=== PATIENT | female | born 1955 | race Caucasian/White ===

== ENCOUNTER 2018-02-10 18:53 | Inpatient (IN) | payer MEDICAID ==
[~2018-02-10] VITALS: Ht 172.7 cm; Wt 135.4 kg
[2018-02-10 20:03] LABS: BASOPHILS % (AUTO) 0.1 % (0-1); EOSINOPHILS % (AUTO) 0.2 % (0-6); HEMATOCRIT 29.3 % (35.0-45.0); HEMOGLOBIN 9.9 g/dl (12.0-16.0); LYMPHOCYTES # (AUTO) 1.6 X10'3 (1.1-4.8); LYMPHOCYTES % (AUTO) 8.7 % (21-51); MEAN CORPUSCULAR HEMOGLOBIN 26.9 PG (27.0-31.0); MEAN CORPUSCULAR HGB CONC 33.7 % (33.0-36.5); MEAN CORPUSCULAR VOLUME 79.8 FL (78-98); MEAN PLATELET VOLUME 7.6 FL (7.4-10.4); MONOCYTES # (AUTO) 0.7 X10'3 (0-0.9); MONOCYTES % (AUTO) 3.7 % (2-12); NEUTROPHILS # (AUTO) 15.8 X10'3 (1.8-7.7); NEUTROPHILS % (AUTO) 87.3 % (42-75); PLATELET COUNT 484 X10'3 (140-440); RED BLOOD COUNT 3.67 X10'6 (4.20-5.60); RED CELL DISTRIBUTION WIDTH 15.9 % (11.5-14.5); WHITE BLOOD COUNT 18.1 X10'3 (4.5-11.0)
[2018-02-10 20:11] LABS: PARTIAL THROMBOPLASTIN TIME 35 SECONDS (22-32); PROTHROMBIN TIME 10.7 SECONDS (9.0-12.0)
[2018-02-10 20:12] LABS: CLARITY,URINE TURBID (Clear); COLOR,URINE YELLOW (Yellow); GLUCOSE, URINE >=1000 mg/dl (Neg); KETONES,URINE 15 mg/dl (Neg); LEUKOCYTE ESTERASE ,URINE MODERATE (Neg); NITRITES, URINE NEGATIVE (Neg); OCCULT BLOOD,URINE LARGE (Neg); PH,URINE 5.5 (4.8-8.0); PROTEIN,URINE 100 mg/dl (Neg); UROBILINOGEN,URINE 0.2 E.U/dL (0.2-1.0)
[2018-02-10 20:17] LABS: ALANINE AMINOTRANSFERASE 16 U/L (12-78); ALBUMIN 2.1 G/DL (3.4-5.0); ALBUMIN/GLOBULIN RATIO 0.4 (1.1-1.5); ALKALINE PHOSPHATASE 99 IU/L (46-116); ASPARTATE AMINO TRANSFERASE 23 U/L (10-37); BILIRUBIN,TOTAL 0.3 MG/DL (0.1-1.0); BLOOD UREA NITROGEN 44 MG/DL (7-18); BUN/CREATININE RATIO 17.1 (6.6-38.0); CALCIUM 9.4 MG/DL (8.5-10.1); CHLORIDE 86 MMOL/L (99-107); CREATININE 2.58 MG/DL (0.40-0.90); TOTAL CARBON DIOXIDE 18.8 MMOL/L (24-32); TOTAL PROTEIN 7.9 G/DL (6.4-8.2); eGFR 19 ML/MIN
[2018-02-10] MEDS ORDERED: vancomycin/NS 1 GM ADD-VANTAGE 250 ML IV ONE (20:20)
[2018-02-10] MEDS ORDERED: normal saline 1000ML IV soln IV ONE (20:20)
[2018-02-10] MEDS ORDERED: piperacillin/tazo 3.375gm/50ml 50 ML IV ONE (20:20)
[2018-02-10 20:21] LABS: UA COLLECTION TYPE VOIDED
[2018-02-10] MEDS ORDERED: clindamycin-Cleocin 900mg/D5W 50 ML IV ONE (20:25)
[2018-02-10 20:31] LABS: BACTERIA,URINE 2+ /HPF (Neg); MUCUS STRANDS NONE SEEN /LPF (Neg); RBC,URINE NONE SEEN /HPF (0-2); SQUAMOUS EPITHELIAL CELL,UR NONE SEEN /LPF (FEW); WBC,URINE TNTC /HPF (0-4)
[2018-02-10 20:32] LABS: YEAST MANY /HPF (NEGATIVE)
[2018-02-10 20:33] LABS: ANION GAP 14 (8-16); POTASSIUM 4.4 MMOL/L (3.5-5.1)
[2018-02-10 20:38] LABS: GLUCOSE 527 MG/DL (70-104); SODIUM 119 MMOL/L (135-145)
[2018-02-10] MEDS ORDERED: insulin regular, human 10 units/0.1 ml syringe SQ ONE (21:15)
[2018-02-10] MEDS ORDERED: normal saline 1000ML IV soln IVB ONE (22:05)
[2018-02-10 22:26] LABS: LARGE PLATELETS FEW; TOTAL CELLS COUNTED 100
[2018-02-10 22:27] LABS: ANISOCYTOSIS 1+; PLATELET ESTIMATE INCREASED
[2018-02-10 22:29] LABS: MICROCYTOSIS 1+; ROULEAUX 1+
[2018-02-11] VITALS (7 sets, daily range): BP systolic 114–151; BP diastolic 52–72
[2018-02-11] MEDS ORDERED: magnesium 4gm in 100ml NS 100 ML IV PRN (00:20)
[2018-02-11] MEDS ORDERED: dextrose 50%-water 50ml dispensing syringe IV PRN ×2 (00:20)
[2018-02-11] MEDS ORDERED: potassium Cl 20 mEq SR tablet PO PRN ×2 (00:20)
[2018-02-11] MEDS ORDERED: potassium Cl 40MEQ/NS 500ml 500 ML IV PRN ×2 (00:20)
[2018-02-11] MEDS: enoxaparin 30mg/0.3ml syringe SUBCUT SCH (00:20)
[2018-02-11] MEDS ORDERED: morphine 4 MG/ML inj SYRINge IV PRN ×2 (00:20)
[2018-02-11] MEDS ORDERED: ondansetron/PF 4mg/2ml inj IV PRN (00:20)
[2018-02-11] MEDS ORDERED: HYDROcodone/acetaminophen 5mg/325mg tablet PO PRN (00:20)
[2018-02-11] MEDS ORDERED: magnesium Cl slow-release 64mg tablet PO PRN (00:20)
[2018-02-11] MEDS ORDERED: magnesium hydroxide 30ml (MOM) UD suspension PO PRN (00:20)
[2018-02-11] MEDS ORDERED: mag hydrox/Alum hydrox/simeth 30ml oral suspension PO PRN (00:20)
[2018-02-11] MEDS ORDERED: acetaminophen 325mg tablet PO PRN ×2 (00:20)
[2018-02-11] MEDS ORDERED: dextrose ORAL solution 15 GM/59 ML bottle PO PRN ×2 (00:20)
[2018-02-11] MEDS ORDERED: magnesium 1gm/100ml D5W IVPB 100 ML IV PRN (00:20)
[2018-02-11] MEDS ORDERED: MESSAGE TO PHARMACY PO ONE (00:20)
[2018-02-11] MEDS ORDERED: glucagon, human recombinant 1mg kit SUBCUT PRN (00:20)
[2018-02-11] MEDS ORDERED: HYDR-3973 PO (00:54)
[2018-02-11] MEDS ORDERED: INSU100V9 SUBCUT (00:54)
[2018-02-11] MEDS ORDERED: FENO134C PO (00:54)
[2018-02-11] MEDS ORDERED: CYCL-1 PO (00:54)
[2018-02-11] MEDS ORDERED: ACET-655 PO (00:54)
[2018-02-11] MEDS ORDERED: ZOLP10TA5 PO (00:54)
[2018-02-11] MEDS ORDERED: LISI2.5T2 PO (00:54)
[2018-02-11] MEDS ORDERED: METF10004 PO (00:54)
[2018-02-11] MEDS ORDERED: GLIP10TA11 PO (00:54)
[2018-02-11] MEDS ORDERED: SIMV80TA7 PO (00:54)
[2018-02-11] MEDS ORDERED: FURO20TA4 PO (00:54)
[2018-02-11] MEDS: normal saline 1000ml 1,000 ML IV SCH ×3 (02:15→20:03)
[2018-02-11] MEDS: HYDROcodone/acetaminophen 10/325mg tab PO PRN ×3 (02:15→20:01)
[2018-02-11] MEDS: K and/or MAG REPLACEMENT MC SCH (08:00)
[2018-02-11] MEDS: clindamycin phosphate inj 300 MG in dextrose 5%-water 50ml 48 ML IV SCH ×3 (08:10→23:59)
[2018-02-11] MEDS: piperacillin-tazo 2.25gm/50ml 50 ML IV SCH ×3 (08:10→23:59)
[2018-02-11] MEDS: insulin Lispro (HumaLOG) vial - multi-dose SQ SCH ×4 (08:15→20:52)
[2018-02-11 12:00] LABS: BASOPHILS % (AUTO) 0 % (0-1); EOSINOPHILS # (AUTO) 0.1 X10'3 (0-0.9); EOSINOPHILS % (AUTO) 0.5 % (0-6); HEMATOCRIT 27.5 % (35.0-45.0); LYMPHOCYTES # (AUTO) 1.7 X10'3 (1.1-4.8); LYMPHOCYTES % (AUTO) 10.7 % (21-51); MEAN CORPUSCULAR HEMOGLOBIN 26.4 PG (27.0-31.0); MEAN CORPUSCULAR HGB CONC 32.7 % (33.0-36.5); MEAN CORPUSCULAR VOLUME 80.5 FL (78-98); MEAN PLATELET VOLUME 7.6 FL (7.4-10.4); MONOCYTES # (AUTO) 0.5 X10'3 (0-0.9); MONOCYTES % (AUTO) 3.3 % (2-12); NEUTROPHILS # (AUTO) 13.9 X10'3 (1.8-7.7); NEUTROPHILS % (AUTO) 85.5 % (42-75); PLATELET COUNT 487 X10'3 (140-440); RED BLOOD COUNT 3.42 X10'6 (4.20-5.60); RED CELL DISTRIBUTION WIDTH 15.8 % (11.5-14.5); WHITE BLOOD COUNT 16.2 X10'3 (4.5-11.0)
[2018-02-11] MEDS: lactobacillus rhamnosus 10,000 MMU CELLS/CAPSULE PO SCH (20:00)
[2018-02-11] MEDS ORDERED: insulin glargine (Lantus) pen - multi-dose SQ SCH (21:00)
[2018-02-11] MEDS ORDERED: temazepam 15mg capsule PO PRN (21:00)
[2018-02-12] MEDS: HYDROcodone/acetaminophen 10/325mg tab PO PRN (00:44)
[2018-02-12 03:00] VITALS: BP 135/52
[2018-02-12 05:45] LABS: BASOPHILS % (AUTO) 0.1 % (0-1); EOSINOPHILS # (AUTO) 0.2 X10'3 (0-0.9); EOSINOPHILS % (AUTO) 1.2 % (0-6); HEMATOCRIT 29.8 % (35.0-45.0); HEMOGLOBIN 9.7 g/dl (12.0-16.0); LYMPHOCYTES # (AUTO) 1.9 X10'3 (1.1-4.8); LYMPHOCYTES % (AUTO) 11.6 % (21-51); MEAN CORPUSCULAR HEMOGLOBIN 26.5 PG (27.0-31.0); MEAN CORPUSCULAR HGB CONC 32.5 % (33.0-36.5); MEAN CORPUSCULAR VOLUME 81.5 FL (78-98); MEAN PLATELET VOLUME 6.9 FL (7.4-10.4); MONOCYTES # (AUTO) 0.7 X10'3 (0-0.9); MONOCYTES % (AUTO) 4.2 % (2-12); NEUTROPHILS # (AUTO) 13.5 X10'3 (1.8-7.7); NEUTROPHILS % (AUTO) 82.9 % (42-75); PLATELET COUNT 573 X10'3 (140-440); RED BLOOD COUNT 3.66 X10'6 (4.20-5.60); RED CELL DISTRIBUTION WIDTH 15.9 % (11.5-14.5); WHITE BLOOD COUNT 16.3 X10'3 (4.5-11.0)
[2018-02-12 06:01] LABS: ALBUMIN 1.7 G/DL (3.4-5.0); ANION GAP 15 (8-16); BLOOD UREA NITROGEN 24 MG/DL (7-18); BUN/CREATININE RATIO 18.3 (6.6-38.0); CHLORIDE 95 MMOL/L (99-107); CREATININE 1.31 MG/DL (0.40-0.90); GLUCOSE 331 MG/DL (70-104); MAGNESIUM 2.1 MG/DL (1.5-2.4); POTASSIUM 4.1 MMOL/L (3.5-5.1); SODIUM 129 MMOL/L (135-145); TOTAL CARBON DIOXIDE 18.8 MMOL/L (24-32); eGFR 41 ML/MIN
[2018-02-12] MEDS: normal saline 1000ml 1,000 ML IV SCH (06:16)
[2018-02-12 07:07] VITALS: BP 146/51
[2018-02-12] MEDS: piperacillin-tazo 2.25gm/50ml 50 ML IV SCH (07:55)
[2018-02-12] MEDS: lactobacillus rhamnosus 10,000 MMU CELLS/CAPSULE PO SCH (07:55)
[2018-02-12] MEDS: enoxaparin 30mg/0.3ml syringe SUBCUT SCH (07:56)
[2018-02-12] MEDS: K and/or MAG REPLACEMENT MC SCH (08:00)
[2018-02-12] MEDS: clindamycin phosphate inj 300 MG in dextrose 5%-water 50ml 48 ML IV SCH (09:11)
[2018-02-12] MEDS: insulin Lispro (HumaLOG) vial - multi-dose SQ SCH (09:15)
[2018-02-14] MEDS ORDERED: VANCOMYCIN LEVEL IV ONE (19:30)
== END 2018-02-12 11:35 | disposition left against medical advice (07) | DRG 720 ==
LOC: ER 18:53 → ED HOLD 02-11 00:16 → PCU 3S 02-11 01:34
PROVIDERS: ADMIT Hospitalist; ATTEND Family Medicine
DX: A41.9 Sepsis, unspecified organism (principal); E43 Unspecified severe protein-calorie malnutrition; E11.65 Type 2 diabetes mellitus with hyperglycemia; D64.9 Anemia, unspecified; Z53.21 Procedure and treatment not carried out due to patient leaving prior to being seen by health care provider; K57.30 Diverticulosis of large intestine without perforation or abscess without bleeding; N28.9 Disorder of kidney and ureter, unspecified; N39.0 Urinary tract infection, site not specified; N76.2 Acute vulvitis; M19.90 Unspecified osteoarthritis, unspecified site; L03.317 Cellulitis of buttock; Z68.42 Body mass index [BMI] 45.0-49.9, adult
CPT/HCPCS: 36415; 74176; 80048; 80053; 81001; 82948; 83036; 83605; 83735; 84145; 85025; 85610; 85730; 87040; 87070; 87077; 87088; 87186; J1650; J1815; J2543; J3370; J3490; J7030; J7060